=== PATIENT | female | born 1965 | race Caucasian/White ===

== ENCOUNTER 2017-06-22 16:25 | Emergency (ER) | payer OTHER ==
[~2017-06-22] VITALS: Ht 152.4 cm; Wt 89.0 kg
[~2017-06-22 16:25] MED LIST: BEN50 PO; PRED20TA PO
[2017-06-22 16:32] VITALS: Ht 152.4 cm; Wt 89.0 kg
[2017-06-22] MEDS ORDERED: SOD CHLORIDE 0.9% 1,000 ML IV ONE (18:00)
[2017-06-22] MEDS ORDERED: FAMOTIDINE 20 MG INJ IV ONE (18:00)
[2017-06-22] MEDS ORDERED: METHYLPREDNISOLONE 125 MG INJ IV ONE (18:00)
[2017-06-22] MEDS ORDERED: DIPHENHYDRAMINE 50 MG INJ IV ONE (18:00)
[2017-06-22] MEDS ORDERED: MED4DP PO (19:26)
[2017-06-22] MEDS ORDERED: BEN25 PO (19:27)
--- NOTE | 2017-06-22 19:40 | ERD ---
ER Documentation Chief Complaint Date/Time DATE: 06/22/17 TIME: 19:33 Chief Complaint SWOLLEN MOUTH/FACE - POSSIBLE ALLERGIC REACTION HPI This is a 51-year-old female presents to the ER with swelling of her lips, patient has had this in the past and states she is going to see an system support specialist. Patient denies any difficulty in breathing. She denies any rashes she denies any itching. Patient denies any fevers or chills. She denies any trauma to her mouth. She denies any dental pain. ROS 12 point review of systems was done, all negative except per HPI. Medications Home Meds Active Scripts Diphenhydramine Hcl* (Benadryl*) 25 Mg Cap, 25 MG PO Q6, #30 CAP Prov:ROSA TORRE 06/22/17 Methylprednisolone* (Medrol* DOSE PACK) 4 Mg/Dose-Pack Tab.ds.pk, 4 MG PO . DIRECTED for 3 Days, PACKET Prov:ROSA TORRE 06/22/17 Diphenhydramine Hcl* (Benadryl*) 50 Mg Cap, 50 MG PO Q6H Y for ITCHING/RASH for 7 Days, #30 CAP 0 Refills Prov:AUSTIN AMBRIZ PA-C 04/08/16 Prednisone* (Prednisone*) 20 Mg Tab, 40 MG PO DAILY for 4 Days, #8 TAB 0 Refills Prov:AUSTIN AMBRIZ PA-C 04/08/16 Allergies Allergies: Coded Allergies: amoxicillin (Verified Allergy, Unknown, swelling, 04/08/16) PMhx/Soc Medical and Surgical Hx: pt denies Medical Hx, pt denies Surgical Hx Hx Alcohol Use: No Hx Substance Use: No Hx Tobacco Use: No Smoking Status: Never smoker Physical Exam Vitals Vital Signs Date Time Temp Pulse Resp B/P Pulse Ox O2 Delivery O2 Flow Rate FiO2 06/22/17 16:32 97.7 74 19 137/77 99 Physical Exam GENERAL: The patient is well developed and appropriate for usual state of health , in no apparent distress. HEENT: Atraumatic. Conjunctivae are pink. Pupils equal, round, and reactive to light. Patient has swelling of both lips. She does not have any tongue swelling or eye swelling. There is no pain at the bottom of the mouth. CHEST: Clear to auscultation bilaterally. There are no rales, wheezes or rhonchi. HEART: Regular rate and rhythm. No murmurs, clicks, rubs or gallops. BACK: No midline or flank tenderness. NEURO: Alert and oriented. SKIN: There is no apparent rash or petechia. The skin is warm and dry. Results 24 hrs Current Medications Medications (Trade) Dose Ordered Sig/Justen Route PRN Reason Start Time Stop Time Status Last Admin Dose Admin Methylprednisolone Sodium Succinate (Solu-Medrol) 125 mg ONCE ONCE IV 06/22/17 18:00 06/22/17 18:01 DC 06/22/17 17:51 Diphenhydramine HCl (Benadryl) 25 mg ONCE ONCE IV 06/22/17 18:00 06/22/17 18:01 DC 06/22/17 17:52 Famotidine 20 mg 20 mg ONCE ONCE IV 06/22/17 18:00 06/22/17 18:01 DC 06/22/17 17:51 Sodium Chloride (NS) 1,000 ml @ 1,000 mls/hr Q1H ONCE IV 06/22/17 18:00 06/22/17 18:59 DC 06/22/17 17:53 Procedures/MDM This is a 51-year-old female presents to the ER with lip swelling. Patient has had allergic reactions in the past, this is likely allergic reaction. Suspicion for Mesfin's angina or deep cavernous thrombosis is low. Patient is afebrile and well appearing, after treatement in the ER patients lip swelling at significantly gone down. Patient needs to follow u with her PCP within 1-2 days or return to ER sooner if symptoms worsen. my medical decision making was shared with the patient, she understands and agrees with plan. Departure Diagnosis: Primary Impression: Swelling Condition: Stable Patient Instructions: First Aid: Allergic Reactions Additional Instructions: Llame al doctor EUSEBIO y teo salma MICHELLE PARA DENTRO DE 1-2 KNOTT.Dgale a la secretaria que nosotros le instruimos hacer esta michelle.Avise o llame si smith condicin se empeora antes de la michelle. Regresa aqui si peor o no mejor. ROSA TORRE Jun 22, 2017 19:40
[2017-06-22 19:47] VITALS: BP 124/64; PULSE 76; RESP 20
[2017-06-27] MEDS ORDERED: NITR-58 PO (13:45)
== END 2017-06-22 19:48 | disposition home or self-care (01) ==
LOC: FTE 16:25
DX: R60.0 Localized edema (principal)
CPT/HCPCS: 96374; 96375; 99284; J1200; J2930; J7030

== ENCOUNTER 2018-03-08 08:32 | Emergency (ER) | END 2018-03-08 10:08 | disposition home or self-care (01) ==